=== PATIENT | male | born 1955 | race African-American/Black ===

== ENCOUNTER 2024-09-18 11:41 | Emergency (ER) | payer BC ==
[~2024-09-18] VITALS: Ht 190.5 cm; Wt 91.0 kg
[2024-09-18 11:43] VITALS: BP 106/72; PULSE 94; RESP 16; TEMP 36.8; O2SAT 99
[2024-09-18] MEDS: ACETAMINOPHEN 500MG TABLET PO ONE (12:20)
== END 2024-09-18 15:39 | disposition home or self-care (01) ==
LOC: ER 11:41
DX: M54.9 Dorsalgia, unspecified (principal)
CPT/HCPCS: 99283